=== PATIENT | male | born 1975 | race Caucasian/White ===

== ENCOUNTER 2025-03-10 13:24 | Emergency (ER) | payer OTHER, SELFPAY ==
[~2025-03-10] VITALS: Ht 193 cm; Wt 119.6 kg
[2025-03-10] MEDS: LIDOCAINE W/EPINEPHrine 1% 20 ML VIAL SC ONE (13:50)
[2025-03-10] MEDS: CEPHALEXIN 500 MG CAP PO ONE (14:00)
[2025-03-10] MEDS: TETANUS/DIPHTH/ACEL. PERTUSSIS 0.5 ML SYR IM ONE (14:01)
[2025-03-10] MEDS ORDERED: CEPH500C PO (14:30)
[2025-03-10 14:48] VITALS: BP 146/84; TEMP 98.7; O2SAT 98
== END 2025-03-10 14:48 | disposition home or self-care (01) ==
LOC: M ED 13:24
DX: S61.411A Laceration without foreign body of right hand, initial encounter (principal); W26.8XXA Contact with other sharp object(s), not elsewhere classified, initial encounter; Z87.442 Personal history of urinary calculi; Y92.009 Unspecified place in unspecified non-institutional (private) residence as the place of occurrence of the external cause; Y93.89 Activity, other specified; Y99.9 Unspecified external cause status; Z79.2 Long term (current) use of antibiotics; Z23 Encounter for immunization